=== PATIENT | male | born 1990 | race Caucasian/White ===

== ENCOUNTER 2024-04-10 08:05 | Emergency (ER) | payer OTHER ==
[~2024-04-10] VITALS: Ht 190.5 cm; Wt 108.9 kg
[2024-04-10 08:14] VITALS: BP 128/86
[2024-04-10] MEDS ORDERED: METPHE20 PO (08:18)
[2024-04-10] MEDS ORDERED: METHYLPHENIDATE36 MG PO (08:18)
== END 2024-04-10 09:51 | disposition home or self-care (01) ==
LOC: ER 08:05
DX: S92.341A Displaced fracture of fourth metatarsal bone, right foot, initial encounter for closed fracture (principal); W22.8XXA Striking against or struck by other objects, initial encounter; Z79.899 Other long term (current) drug therapy; Z88.8 Allergy status to other drugs, medicaments and biological substances
CPT/HCPCS: 73630; 99283-25